=== PATIENT | female | born 1930 | race Caucasian/White ===

== ENCOUNTER 2021-01-18 10:27 | Inpatient (IN) ==
[2021-01-18] MEDS ORDERED: *HR* Dextrose 50 % in Water (Vial) 50 ML VIAL IVP PRN (14:15)
[2021-01-18] MEDS ORDERED: Dextrose Gel 15 GM/37.5 ML TUBE PO PRN ×2 (14:15)
[2021-01-18] MEDS ORDERED: D5% in Water 1,000 ML IVC PRN (14:15)
[2021-01-18] MEDS ORDERED: Insulin LISPRO 300 UNITS/3 ML VIAL SUBQ SCH (17:00)
[2021-01-18] MEDS ORDERED: Amoxicillin/Clavulanate 200 MG/5 ML MLS PO SCH (18:00)
[2021-01-18] MEDS: Insulin LISPRO 300 UNITS/3 ML VIAL SUBQ SCH ×2 (18:04→20:56)
[2021-01-18] MEDS: Amoxicillin/Clavulanate 200 MG/5 ML MLS PO SCH (18:45)
[2021-01-18] MEDS: Lactobacillus 1 EACH CAP.SPRINK PO SCH (20:56)
[2021-01-18] MEDS ORDERED: Insulin DETEMIR 100 UNIT/ML per UNIT SUBQ ONE (21:00)
[2021-01-18] MEDS: Ondansetron ODT 4 MG TAB.RAPDIS SL PRN (23:13)
[2021-01-18] MEDS: *HR* OxyCODONE Immed Rel 5 MG TABLET PO PRN (23:13)
[2021-01-19 05:02] LABS: Basophils # 0.1 K/mcL (0.0-0.2); Basophils % 0.5 %; Eosinophils # 0.6 K/mcL (0.0-0.6); Eosinophils % 4.5 %; Hematocrit 37.7 % (35.3-44.9); Hemoglobin 12.5 g/dL (11.5-15.4); Immature Granulocytes % 1.4 % (0-4); Lymphocytes # 2.7 K/mcL (0.6-4.6); Lymphocytes % 21.8 %; Mean Corpuscular HGB Conc 33.2 g/dL (31.6-35.5); Mean Corpuscular Hemoglobin 30.7 pg (28.0-33.3); Mean Corpuscular Volume 92.6 fL (83.0-100.0); Mean Platelet Volume 10.5 fL (9.4-12.4); Monocytes # 1.4 K/mcL (0.0-1.3); Monocytes % 11.4 %; Platelet Count 292 K/mcL (140-400); Red Blood Count 4.07 M/mcL (3.82-4.97); Red Cell Distribution Width 14.8 % (11.5-14.5); Segmented Neutrophils % 60.4 %; White Blood Count 12.3 K/mcL (4.3-11.1)
[2021-01-19 05:07] LABS: Neutrophils # 7.4 K/mcL (1.6-8.9)
[2021-01-19] MEDS: *HR* OxyCODONE Immed Rel 5 MG TABLET PO PRN ×2 (05:42→23:44)
[2021-01-19] MEDS: Amoxicillin/Clavulanate 200 MG/5 ML MLS PO SCH ×2 (05:42→17:25)
[2021-01-19] MEDS: *HR* Enoxaparin 40 MG/0.4 ML SYRINGE SQ SCH (05:43)
[2021-01-19] MEDS: Insulin LISPRO 300 UNITS/3 ML VIAL SUBQ SCH ×4 (07:46→20:31)
[2021-01-19] MEDS: *HR* Metformin 500 MG TABLET PO SCH (08:02)
[2021-01-19] MEDS: Cholecalciferol (D-3) 1,000 UNIT (25MCG) TABLET PO SCH (08:02)
[2021-01-19] MEDS: Torsemide 20 MG TABLET PO SCH (08:02)
[2021-01-19] MEDS: amLODIPine 5 MG TABLET PO SCH (08:03)
[2021-01-19] MEDS: atenoloL 50 MG TABLET PO SCH (08:03)
[2021-01-19] MEDS: Aspirin 81 MG TAB.CHEW PO SCH (08:04)
[2021-01-19] MEDS: Lactobacillus 1 EACH CAP.SPRINK PO SCH ×2 (08:04→20:28)
[2021-01-19] MEDS ORDERED: polyethylene glycoL 3350 17 GM POWD.PACK PO PRN (18:34)
[2021-01-19] MEDS: Sennosides/Docusate Sodium TABLET PO SCH (20:28)
[2021-01-19] MEDS: Insulin DETEMIR 100 UNIT/ML X5UNITS SUBQ SCH (20:29)
[2021-01-20] MEDS: Amoxicillin/Clavulanate 200 MG/5 ML MLS PO SCH ×2 (05:23→18:01)
[2021-01-20] MEDS: *HR* Enoxaparin 40 MG/0.4 ML SYRINGE SQ SCH (05:24)
[2021-01-20] MEDS: *HR* OxyCODONE Immed Rel 5 MG TABLET PO PRN (05:28)
[2021-01-20] MEDS: atenoloL 50 MG TABLET PO SCH (08:07)
[2021-01-20] MEDS: amLODIPine 5 MG TABLET PO SCH (08:07)
[2021-01-20] MEDS: Aspirin 81 MG TAB.CHEW PO SCH (08:08)
[2021-01-20] MEDS: Sennosides/Docusate Sodium TABLET PO SCH ×2 (08:08→21:38)
[2021-01-20] MEDS: Torsemide 20 MG TABLET PO SCH (08:08)
[2021-01-20] MEDS: Lactobacillus 1 EACH CAP.SPRINK PO SCH ×2 (08:08→21:37)
[2021-01-20] MEDS: Cholecalciferol (D-3) 1,000 UNIT (25MCG) TABLET PO SCH (08:08)
[2021-01-20] MEDS: *HR* Metformin 500 MG TABLET PO SCH (08:08)
[2021-01-20] MEDS: Insulin LISPRO 300 UNITS/3 ML VIAL SUBQ SCH ×3 (08:11→21:37)
[2021-01-20] MEDS: Ondansetron ODT 4 MG TAB.RAPDIS SL PRN (19:58)
[2021-01-20] MEDS: Insulin DETEMIR 100 UNIT/ML X5UNITS SUBQ SCH (21:39)
[2021-01-21] MEDS: *HR* Enoxaparin 30 MG/0.3 ML SYRINGE SQ SCH (05:51)
[2021-01-21] MEDS ORDERED: Amoxicillin/Clavulanate 400 MG/5 ML UDC PO SCH (06:00)
[2021-01-21 06:18] LABS: Hemoglobin 12.2 g/dL (11.5-15.4); Mean Corpuscular Hemoglobin 30.8 pg (28.0-33.3); Mean Corpuscular Volume 93.4 fL (83.0-100.0); Mean Platelet Volume 11.1 fL (9.4-12.4); Platelet Count 275 K/mcL (140-400); Red Blood Count 3.96 M/mcL (3.82-4.97); Red Cell Distribution Width 14.8 % (11.5-14.5); White Blood Count 9.4 K/mcL (4.3-11.1)
[2021-01-21 06:48] LABS: Albumin 3.7 g/dL (3.5-5.7); Albumin/Globulin Ratio 1.3 (1.1-2.2); Bilirubin,Total 0.5 mg/dL (0.3-1.0); Calcium 9.7 mg/dL (8.6-10.3); Globulin 2.9 g/dL (2.4-3.5); Magnesium 1.6 mg/dL (1.6-2.6); Potassium 3.9 mEq/L (3.5-5.1); Total Protein 6.6 g/dL (6.4-8.9)
[2021-01-21] MEDS: Insulin LISPRO 300 UNITS/3 ML VIAL SUBQ SCH ×5 (07:33→19:42)
[2021-01-21] MEDS: Sennosides/Docusate Sodium TABLET PO SCH ×2 (07:52→19:47)
[2021-01-21] MEDS: Lactobacillus 1 EACH CAP.SPRINK PO SCH ×2 (08:08→19:36)
[2021-01-21] MEDS: Cholecalciferol (D-3) 1,000 UNIT (25MCG) TABLET PO SCH (08:08)
[2021-01-21] MEDS: Torsemide 20 MG TABLET PO SCH (08:08)
[2021-01-21] MEDS: atenoloL 50 MG TABLET PO SCH (08:08)
[2021-01-21] MEDS: *HR* Metformin 500 MG TABLET PO SCH (08:09)
[2021-01-21] MEDS: Aspirin 81 MG TAB.CHEW PO SCH (08:09)
[2021-01-21] MEDS: Ondansetron ODT 4 MG TAB.RAPDIS SL PRN ×2 (08:09→18:44)
[2021-01-21] MEDS: amLODIPine 5 MG TABLET PO SCH (08:09)
[2021-01-21] MEDS: Amoxicillin/Clavulanate 400 MG/5 ML UDC PO SCH ×2 (08:09→19:36)
[2021-01-21] MEDS: *HR* OxyCODONE Immed Rel 5 MG TABLET PO PRN (19:39)
[2021-01-21] MEDS: Insulin DETEMIR 100 UNIT/ML X5UNITS SUBQ SCH (19:40)
[2021-01-22] MEDS: *HR* Enoxaparin 30 MG/0.3 ML SYRINGE SQ SCH (05:35)
[2021-01-22] MEDS: Insulin LISPRO 300 UNITS/3 ML VIAL SUBQ SCH ×4 (08:39→21:50)
[2021-01-22] MEDS: Cholecalciferol (D-3) 1,000 UNIT (25MCG) TABLET PO SCH (09:18)
[2021-01-22] MEDS: Aspirin 81 MG TAB.CHEW PO SCH (09:18)
[2021-01-22] MEDS: Lactobacillus 1 EACH CAP.SPRINK PO SCH ×2 (09:19→21:48)
[2021-01-22] MEDS: atenoloL 50 MG TABLET PO SCH (09:19)
[2021-01-22] MEDS: amLODIPine 5 MG TABLET PO SCH (09:19)
[2021-01-22] MEDS: Sennosides/Docusate Sodium TABLET PO SCH ×2 (09:20→21:53)
[2021-01-22] MEDS: Amoxicillin/Clavulanate 400 MG/5 ML UDC PO SCH ×2 (09:24→21:48)
[2021-01-22] MEDS: Insulin DETEMIR 100 UNIT/ML X5UNITS SUBQ SCH (21:51)
[2021-01-22] MEDS: *HR* OxyCODONE Immed Rel 5 MG TABLET PO PRN (23:59)
[2021-01-23] MEDS: *HR* Enoxaparin 30 MG/0.3 ML SYRINGE SQ SCH (06:31)
[2021-01-23] MEDS: Cholecalciferol (D-3) 1,000 UNIT (25MCG) TABLET PO SCH (07:27)
[2021-01-23] MEDS: Sennosides/Docusate Sodium TABLET PO SCH ×2 (07:27→20:01)
[2021-01-23] MEDS: Aspirin 81 MG TAB.CHEW PO SCH (07:28)
[2021-01-23] MEDS: amLODIPine 5 MG TABLET PO SCH (07:28)
[2021-01-23] MEDS: atenoloL 50 MG TABLET PO SCH (07:28)
[2021-01-23] MEDS: Amoxicillin/Clavulanate 400 MG/5 ML UDC PO SCH ×2 (07:28→20:02)
[2021-01-23] MEDS: Lactobacillus 1 EACH CAP.SPRINK PO SCH ×2 (07:28→20:02)
[2021-01-23] MEDS: Insulin LISPRO 300 UNITS/3 ML VIAL SUBQ SCH ×4 (07:30→20:03)
[2021-01-23 14:42] LABS: Bilirubin,Urine Negative (Negative); Blood,Urine Negative (Negative); Clarity,Urine Clear (Clear); Color,Urine Yellow (Yellow); Glucose,Urine (UA) Normal (Normal); Ketones,Urine Negative (Negative); Leukocyte Esterase,Urine Trace (Negative); Nitrite,Urine Negative (Negative); Protein,Urine Trace mg/dL (Neg-Trace); Urobilinogen,Urine Normal (Normal)
[2021-01-23 14:52] LABS: Amorphous Sediment,Urine Few per hpf (None-Few); Squamous Epithelial Cell,Urine Few per hpf (None-Few); WBC,Urine 0-3 per hpf (0-3)
[2021-01-23] MEDS: Insulin DETEMIR 100 UNIT/ML X5UNITS SUBQ SCH (20:03)
[2021-01-23] MEDS: Ondansetron ODT 4 MG TAB.RAPDIS SL PRN (21:45)
[2021-01-23] MEDS: *HR* OxyCODONE Immed Rel 5 MG TABLET PO PRN (21:45)
[2021-01-24] MEDS: *HR* OxyCODONE Immed Rel 5 MG TABLET PO PRN ×2 (03:40→21:22)
[2021-01-24] MEDS: *HR* Enoxaparin 30 MG/0.3 ML SYRINGE SQ SCH (05:04)
[2021-01-24] MEDS: amLODIPine 5 MG TABLET PO SCH (08:18)
[2021-01-24] MEDS: Cholecalciferol (D-3) 1,000 UNIT (25MCG) TABLET PO SCH (08:18)
[2021-01-24] MEDS: Aspirin 81 MG TAB.CHEW PO SCH (08:18)
[2021-01-24] MEDS: Sennosides/Docusate Sodium TABLET PO SCH ×2 (08:19→21:12)
[2021-01-24] MEDS: atenoloL 50 MG TABLET PO SCH (08:19)
[2021-01-24] MEDS: Lactobacillus 1 EACH CAP.SPRINK PO SCH ×2 (08:19→21:12)
[2021-01-24] MEDS: Insulin LISPRO 300 UNITS/3 ML VIAL SUBQ SCH ×4 (08:19→21:07)
[2021-01-24] MEDS: Amoxicillin/Clavulanate 400 MG/5 ML UDC PO SCH ×2 (09:59→21:12)
[2021-01-24] MEDS: Insulin DETEMIR 100 UNIT/ML X5UNITS SUBQ SCH (21:13)
[2021-01-24] MEDS: Ondansetron ODT 4 MG TAB.RAPDIS SL PRN (23:28)
[2021-01-25] MEDS: *HR* Enoxaparin 30 MG/0.3 ML SYRINGE SQ SCH (04:06)
[2021-01-25] MEDS: *HR* OxyCODONE Immed Rel 5 MG TABLET PO PRN (04:07)
[2021-01-25] MEDS: Insulin LISPRO 300 UNITS/3 ML VIAL SUBQ SCH ×4 (07:31→20:36)
[2021-01-25] MEDS: Aspirin 81 MG TAB.CHEW PO SCH (09:49)
[2021-01-25] MEDS: Cholecalciferol (D-3) 1,000 UNIT (25MCG) TABLET PO SCH (09:50)
[2021-01-25] MEDS: Sennosides/Docusate Sodium TABLET PO SCH ×2 (09:50→20:35)
[2021-01-25] MEDS: atenoloL 50 MG TABLET PO SCH (09:50)
[2021-01-25] MEDS: Lactobacillus 1 EACH CAP.SPRINK PO SCH ×2 (09:51→20:36)
[2021-01-25] MEDS: amLODIPine 5 MG TABLET PO SCH (09:51)
[2021-01-25] MEDS: Amoxicillin/Clavulanate 400 MG/5 ML UDC PO SCH (14:50)
[2021-01-25] MEDS: Insulin DETEMIR 100 UNIT/ML X5UNITS SUBQ SCH (20:36)
[2021-01-26] MEDS: *HR* OxyCODONE Immed Rel 5 MG TABLET PO PRN (00:40)
[2021-01-26] MEDS: *HR* Enoxaparin 30 MG/0.3 ML SYRINGE SQ SCH (04:57)
[2021-01-26] MEDS: Insulin LISPRO 300 UNITS/3 ML VIAL SUBQ SCH ×4 (07:54→21:37)
[2021-01-26] MEDS: Aspirin 81 MG TAB.CHEW PO SCH (08:24)
[2021-01-26] MEDS: Sennosides/Docusate Sodium TABLET PO SCH ×2 (08:24→21:37)
[2021-01-26] MEDS: Lactobacillus 1 EACH CAP.SPRINK PO SCH ×2 (08:25→21:37)
[2021-01-26] MEDS: atenoloL 50 MG TABLET PO SCH (08:25)
[2021-01-26] MEDS: Cholecalciferol (D-3) 1,000 UNIT (25MCG) TABLET PO SCH (08:25)
[2021-01-26] MEDS: amLODIPine 5 MG TABLET PO SCH (08:25)
[2021-01-26 12:08] LABS: Hemoglobin 12.2 g/dL (11.5-15.4); Mean Corpuscular Hemoglobin 30.9 pg (28.0-33.3); Mean Corpuscular Volume 93.7 fL (83.0-100.0); Mean Platelet Volume 10.5 fL (9.4-12.4); Platelet Count 307 K/mcL (140-400); Red Blood Count 3.95 M/mcL (3.82-4.97); Red Cell Distribution Width 14.6 % (11.5-14.5)
[2021-01-26 12:25] LABS: Albumin 3.8 g/dL (3.5-5.7); Albumin/Globulin Ratio 1.3 (1.1-2.2); Bilirubin,Total 0.7 mg/dL (0.3-1.0); Calcium 9.5 mg/dL (8.6-10.3); Globulin 2.9 g/dL (2.4-3.5); Magnesium 1.6 mg/dL (1.6-2.6); Potassium 4.2 mEq/L (3.5-5.1); Total Protein 6.7 g/dL (6.4-8.9)
[2021-01-26] MEDS: Insulin DETEMIR 100 UNIT/ML X5UNITS SUBQ SCH (21:37)
[2021-01-27] MEDS: *HR* OxyCODONE Immed Rel 5 MG TABLET PO PRN
[2021-01-27] MEDS: *HR* Enoxaparin 30 MG/0.3 ML SYRINGE SQ SCH (04:47)
[2021-01-27] MEDS: Insulin LISPRO 300 UNITS/3 ML VIAL SUBQ SCH ×4 (07:16→22:12)
[2021-01-27] MEDS: Cholecalciferol (D-3) 1,000 UNIT (25MCG) TABLET PO SCH (08:20)
[2021-01-27] MEDS: Sennosides/Docusate Sodium TABLET PO SCH ×2 (08:20→22:12)
[2021-01-27] MEDS: atenoloL 50 MG TABLET PO SCH (08:21)
[2021-01-27] MEDS: Lactobacillus 1 EACH CAP.SPRINK PO SCH ×2 (08:21→22:12)
[2021-01-27] MEDS: amLODIPine 5 MG TABLET PO SCH (08:21)
[2021-01-27] MEDS: Aspirin 81 MG TAB.CHEW PO SCH (08:21)
[2021-01-27] MEDS: Insulin DETEMIR 100 UNIT/ML X5UNITS SUBQ SCH (22:12)
[2021-01-28] MEDS: *HR* Enoxaparin 30 MG/0.3 ML SYRINGE SQ SCH (05:19)
[2021-01-28] MEDS: Insulin LISPRO 300 UNITS/3 ML VIAL SUBQ SCH ×4 (07:58→19:42)
[2021-01-28] MEDS: Lactobacillus 1 EACH CAP.SPRINK PO SCH ×2 (08:25→19:42)
[2021-01-28] MEDS: Sennosides/Docusate Sodium TABLET PO SCH ×2 (08:25→19:41)
[2021-01-28] MEDS: Aspirin 81 MG TAB.CHEW PO SCH (08:25)
[2021-01-28] MEDS: Cholecalciferol (D-3) 1,000 UNIT (25MCG) TABLET PO SCH (08:25)
[2021-01-28] MEDS: amLODIPine 5 MG TABLET PO SCH (08:25)
[2021-01-28] MEDS: atenoloL 50 MG TABLET PO SCH (08:25)
[2021-01-28] MEDS: Insulin DETEMIR 100 UNIT/ML X5UNITS SUBQ SCH (19:42)
[2021-01-29] MEDS: *HR* Enoxaparin 30 MG/0.3 ML SYRINGE SQ SCH (04:25)
[2021-01-29] MEDS: Insulin LISPRO 300 UNITS/3 ML VIAL SUBQ SCH ×4 (07:47→21:31)
[2021-01-29] MEDS: atenoloL 50 MG TABLET PO SCH (07:48)
[2021-01-29] MEDS: Lactobacillus 1 EACH CAP.SPRINK PO SCH ×2 (07:48→21:32)
[2021-01-29] MEDS: Aspirin 81 MG TAB.CHEW PO SCH (07:48)
[2021-01-29] MEDS: Cholecalciferol (D-3) 1,000 UNIT (25MCG) TABLET PO SCH (07:48)
[2021-01-29] MEDS: amLODIPine 5 MG TABLET PO SCH (07:48)
[2021-01-29] MEDS: Sennosides/Docusate Sodium TABLET PO SCH ×2 (07:49→21:33)
[2021-01-29] MEDS: tiZANidine 4 MG TABLET PO PRN (21:32)
[2021-01-29] MEDS: Insulin DETEMIR 100 UNIT/ML X5UNITS SUBQ SCH (21:33)
[2021-01-30] MEDS: *HR* Enoxaparin 30 MG/0.3 ML SYRINGE SQ SCH (05:29)
[2021-01-30] MEDS: Insulin LISPRO 300 UNITS/3 ML VIAL SUBQ SCH ×4 (07:43→20:29)
[2021-01-30] MEDS: atenoloL 50 MG TABLET PO SCH (08:23)
[2021-01-30] MEDS: Lactobacillus 1 EACH CAP.SPRINK PO SCH ×2 (08:24→20:27)
[2021-01-30] MEDS: Cholecalciferol (D-3) 1,000 UNIT (25MCG) TABLET PO SCH (08:24)
[2021-01-30] MEDS: Aspirin 81 MG TAB.CHEW PO SCH (08:24)
[2021-01-30] MEDS: Sennosides/Docusate Sodium TABLET PO SCH ×2 (08:24→20:27)
[2021-01-30] MEDS: amLODIPine 5 MG TABLET PO SCH (08:25)
[2021-01-30] MEDS: tiZANidine 4 MG TABLET PO PRN (20:28)
[2021-01-30] MEDS: Insulin DETEMIR 100 UNIT/ML X5UNITS SUBQ SCH (20:29)
[2021-01-31] MEDS: *HR* Enoxaparin 30 MG/0.3 ML SYRINGE SQ SCH (05:49)
[2021-01-31 06:53] VITALS: BP 146/77
[2021-01-31] MEDS: Insulin LISPRO 300 UNITS/3 ML VIAL SUBQ SCH ×2 (08:54→12:35)
[2021-01-31] MEDS: amLODIPine 5 MG TABLET PO SCH (08:55)
[2021-01-31] MEDS: Cholecalciferol (D-3) 1,000 UNIT (25MCG) TABLET PO SCH (08:55)
[2021-01-31] MEDS: Sennosides/Docusate Sodium TABLET PO SCH (08:56)
[2021-01-31] MEDS: atenoloL 50 MG TABLET PO SCH (08:56)
[2021-01-31] MEDS: Aspirin 81 MG TAB.CHEW PO SCH (08:56)
[2021-01-31] MEDS: Lactobacillus 1 EACH CAP.SPRINK PO SCH (08:57)
== END 2021-01-31 15:40 | disposition home health service (06) | DRG 949 ==
LOC: INPGRE 13:02
PROVIDERS: ADMIT Family Medicine; ATTEND Family Medicine